=== PATIENT | female | born 1940 | race Caucasian/White ===

== ENCOUNTER → 2017-09-04 | Outpatient (CLI) | payer MEDICARE ==
[2017-09-04 13:24] LABS: HCT 38.9 % (34.0-46.0); HGB 12.8 gm/dL (11.4-16.0); MCH 30.8 pg (25.0-35.0); MCHC 32.8 g/dL (31.0-37.0); MCV 93.8 fL (80.0-100.0); Platelet Count 317 k/uL (150-450); RBC 4.14 m/uL (3.80-5.40); RDW 12.9 % (11.5-15.5); WBC 7.4 k/uL (3.8-10.6)
[2017-09-04 13:28] LABS: Partial Thromboplastin Time 22.8 sec (22.0-30.0); Prothrombin Time 10.1 sec (9.0-12.0)
[2017-09-04 13:33] LABS: ALT 34 U/L (9-52); AST 29 U/L (14-36); Albumin 4.3 g/dL (3.5-5.0); Alkaline Phosphatase 84 U/L (38-126); Anion Gap 12 mmol/L; Blood Urea Nitrogen 20 mg/dL (7-17); Calcium 9.7 mg/dL (8.4-10.2); Carbon Dioxide 26 mmol/L (22-30); Chloride 102 mmol/L (98-107); Glucose 89 mg/dL (74-99); Potassium 4.8 mmol/L (3.5-5.1); Sodium 140 mmol/L (137-145); Total Bilirubin 0.3 mg/dL (0.2-1.3); Total Protein 6.7 g/dL (6.3-8.2)
[2017-09-04 13:53] LABS: Appearance,Urine Clear (Clear); Bilirubin,Urine Negative (Negative); Blood,Urine Small (Negative); Color,Urine Yellow; Glucose,Urine (UA) Negative (Negative); Ketones,Urine Negative (Negative); Leukocyte Esterase,Urine Negative (Negative); Mucus,Urine Rare /hpf; Protein,Urine Negative (Negative); RBC,Urine 5 /hpf (0-5); Specific Gravity,Urine 1.013 (1.001-1.035); Urobilinogen,Urine <2.0 mg/dL (<2.0); WBC,Urine 1 /hpf (0-5)
== END | disposition home or self-care (01) ==
LOC: LABPAT 12:43
PROVIDERS: ATTEND Orthopaedic Surgery
DX: Z01.812 Encounter for preprocedural laboratory examination (principal)
CPT/HCPCS: 36415; 80053; 81001; 85027; 85610; 85730; 87070

== ENCOUNTER 2017-09-21 08:10 | Inpatient (IN) | payer MEDICARE ==
[2017-09-14 09:15] VITALS: BMI 29.0
[~2017-09-21 08:10] MED LIST: ACETAMINOPHEN TAB 500 MG TAB PO ONE; MELOXICAM 7.5 MG TAB PO ONE; MIDAZOLAM 2 MG/2 ML VIAL IV PRN; ONDANSETRON 4 MG/2 ML VIAL IVP ONE; TRANEXAMIC ACID 1,000 MG in SODIUM CHLORIDE 0.9% 50 ML IVPB ONE; ceFAZolin IN SWFI 2 GM/20 ML SYRINGE IVP ONE; fentaNYL (PF) 50 MCG/ML 2 ML AMP IV PRN
[2017-09-21] MEDS: LACTATED RINGERS 1,000 ML IV SCH ×2 (08:54→17:37)
[2017-09-21] MEDS ORDERED: LIDOCAINE 1% 20 ML VIAL (10MG/ML) FOR IV START INTRADERMA ONE (08:55)
[2017-09-21] MEDS: ONDANSETRON 4 MG/2 ML VIAL IVP ONE ×2 (09:02→14:05)
[2017-09-21] MEDS: DEXAMETHASONE SOD PHOSPHATE 10 MG/ML 1 ML VIAL IV ONE ×2 (09:05→14:05)
[2017-09-21] MEDS: ACETAMINOPHEN TAB 500 MG TAB PO STA ×2 (09:24→14:05)
[2017-09-21] MEDS ORDERED: ROPIVACAINE 246.25 MG, EPINEPHrine 0.5 MG, KETOROLAC 30 MG, cloNIDine HCL/PF 80 MCG, WA... MISCELLANE ONE ×5 (09:28)
[2017-09-21] MEDS ORDERED: SODIUM CHLORIDE 0.9% 50 ML with ceFAZolin 2,000 MG IV ONE ×2 (10:12)
[2017-09-21] MEDS ORDERED: fentaNYL (PF) 50 MCG/ML 2 ML AMP ONE (10:12)
[2017-09-21] MEDS ORDERED: TRANEXAMIC ACID 1,000 MG/10 ML VIAL ONE (10:12)
[2017-09-21] MEDS ORDERED: diphenhydrAMINE 50 MG/ML 1 ML VIAL ONE (10:12)
[2017-09-21] MEDS ORDERED: SODIUM CHLORIDE 0.9% 100 ML BAG ONE (10:12)
[2017-09-21] MEDS ORDERED: MIDAZOLAM 2 MG/2 ML VIAL ONE (10:12)
[2017-09-21] MEDS ORDERED: ceFAZolin 3,000 MG in SODIUM CHLORIDE 0.9% IRRIGATIO 3,000 ML IRRIGATION ONE (10:48)
[2017-09-21] MEDS ORDERED: HYDROcodone/APAP 5-325MG 1 EACH TAB PO PRN (12:28)
[2017-09-21] MEDS ORDERED: ACETAMINOPHEN TAB 325 MG TAB PO PRN (12:28)
[2017-09-21] MEDS ORDERED: BISACODYL 10 MG SUPP RECTAL PRN (12:28)
[2017-09-21] MEDS ORDERED: MAGNESIUM HYDROXIDE 2,400 MG/10 ML CUP PO PRN (12:28)
[2017-09-21] MEDS ORDERED: NALOXONE 0.4 MG/ML 1 ML VIAL IV PRN (12:28)
[2017-09-21] MEDS ORDERED: MORPHINE SULFATE 4 MG/ML SYRINGE IVP PRN ×4 (12:28)
[2017-09-21] MEDS ORDERED: TEMAZEPAM 15 MG CAP PO PRN (12:28)
[2017-09-21] MEDS ORDERED: ONDANSETRON 4 MG/2 ML VIAL IVP PRN (12:28)
[2017-09-21] MEDS ORDERED: NA PHOS,M-B/NA PHOS,DI-BA 133 ML ENEMA RECTAL PRN (12:28)
--- NOTE | 2017-09-21 12:54 | XR ---
EXAMINATION TYPE: XR knee limited LT DATE OF EXAM: 09/21/2017 CLINICAL HISTORY: Left knee pain and arthritis status post total knee replacement. TECHNIQUE: Portable AP and crosstable lateral views of the left knee are obtained immediately postop eratively. COMPARISON: None FINDINGS: Metallic hardware from total left knee arthroplasty is seen and appears satisfactory in al ignment and position. There is evidence of recent surgery with diffuse subcutaneous gas, vertical sk in bj, and soft tissue swelling noted. IMPRESSION: METALLIC HARDWARE FROM TOTAL LEFT KNEE ARTHROPLASTY IS SATISFACTORY IN ALIGNMENT.
--- NOTE | 2017-09-21 13:27 | P.OP ---
Date of Procedure: 09/21/17 Procedure(s) Performed: PREOPERATIVE DIAGNOSIS: Left knee severe osteoarthritis with genu varum POSTOPERATIVE DIAGNOSIS: Left knee severe osteoarthritis with genu varum OPERATION: Left knee cemented total replacement arthroplasty. ANESTHESIA: Spinal ESTIMATED BLOOD LOSS: 100 ml. IRISH MOSS GATHERER: Mirtha Landis PA-C (assistance with: patient positioning, retraction, exposure, hemostasis, leg positioning, implantation, irrigation, closure, dressing) COMPLICATIONS: None apparent. COMPONENTS IMPLANTED: Persona system from Michelle INDICATIONS: Mrs. Benedict is a 77-year-old female with a history of knee osteoarthritis. She has already had a right knee replacement arthroplasty many years ago. The operation of knee replacement has been discussed at length in the office, as well as potential risks and complications. These are inclusive of, but not limited to: bleeding, infection, scarring, discomfort, blood vessel and nerve damage, need for further surgery, failure to relieve symptoms, persistence, recurrence, or worsening of problems, loosening, dislocation, wear , blood clot, pulmonary embolism, , gait dysfunction, stiffness, and other risks as discussed in the office. The patient elects to proceed and the consent form has been signed. PROCEDURE: The patient was taken to the operating room and positioned on the operating room table in the supine position. Anesthesia was initiated. Care was taken to make sure that all pressure points were adequately padded. The operative lower extremity was prepped and draped in the usual aseptic fashion using DuraPrep. Ioban drape was used for the case and the patient received intravenous antibiotics within one hour of the incision. A pneumotourniquet and leg grider were used for the case. The limb was exsanguinated with an Esmarch bandage and the tourniquet was inflated to 350 mmHg. Time-out was called confirming the patient's identity, side, procedure and administration of antibiotics. The incision was then created midline directly over the knee, carried down through skin and into the subcutaneous tissues and down to fascia. Full thickness subcutaneous medial flap was developed. Medial parapatellar arthrotomy was performed and the interior of the knee was inspected. There was end-stage osteoarthritis of the knee with a mild to moderate genu varum type deformity. The fat pad was excised and proximal medial release on the tibia was completed using meticulous dissection and a curved osteotome. The anterior cruciate ligament was taken down. Note was made of significant attrition of the anterior and significant degenerative appearance of the posterior cruciate ligaments. The exposure was excellent. The knee was flexed 90 degrees and the patella was everted. A spot was chosen on the femur approximately 1 cm anterior to the posterior cruciate ligament insertion and an intramedullary hole was created within the femur. The intramedullary guide was then set to 5 degrees of valgus. The distal cutting block was attached and pinned into position. An appropriate amount of distal femoral resection was set. The oscillating saw was then used to make the distal femoral cut. This cut was confirmed to be flat with the flat end of an osteotome. The retractors were placed around the tibia and the tibial surface was addressed. The angle and depth of resection was adjusted using an extramedullary cutting guide. The guide had a built-in 3 degree posterior slope cut. Once the cutting guide was adjusted appropriately and in line with the axis of the tibia and confirmed to be in good position in relation to the second metatarsal and transmalleolar axis, the tibial cut was then created with protection of the posterior neurovascular structures and the collateral ligaments. The tibial cut surface was removed and sized. Femoral sizing was then accomplished using anterior referencing. Care was taken to analyze the posterior condyles for signs of deficiency or severe wear, and adjustments to the guide were made, as appropriate. 3 degree external rotation pins were placed. The cutting jig for the femur was applied to these pins. The planned cuts were further analyzed prior to performing them with the oscillating saw. No femoral notching was produced. Bone fragments were removed and the cut surfaces were finished, as necessary, with a reciprocating saw. Spacer block technique was then used to confirm that the flexion and extension gaps were equal. Soft tissue releases and adjustment of the tibial and/or femoral cuts were made, as necessary, until the gaps were equal. This included release of the posterior cruciate ligament, which was tight in this patient and , if left unreleased, would have resulted in poor kinematics and possibly early loosening. The femur was then further finished for a posterior cruciate ligament substituting component. Patellar resurfacing was performed using a reamer. The size of the required patellar component was estimated and the patellar surface was then reamed down to a residual thickness which would recreate the little traverse thickness with the component. The placement of the patellar component was influenced by the degree of patellar subluxation, if any, noted on the preoperative x-rays. Prior to placing trial components, anesthetic solution consisting of ropivicaine with epinephrine, ketorolac, and clonidine was injected carefully and methodically in a grid pattern using aspiration technique into the soft tissue around the knee circumferentially, starting with the deeper tissues first and progressing to fascia, and then finally the skin/subcutaneous tissue. Particular care was taken when injecting the posterior capsule. The trial components were inserted. The tibial tray was allowed to self center and the patella was noted to track very well. The position of the tibial component was marked and the tibia was then finished for a stemmed tibial component. Cement was mixed on the back table and applied to the final components. Trial components were removed and the cut surfaces of the bone were pulse lavaged thoroughly and dried. Cement was then applied to the tibial surface and pressurized into the surface using finger pressurization technique. The tibial component was then applied and excess cement was removed after it was impacted securely and noted to be flush with the cut surface. In similar fashion, the cement was applied to the cut femoral surface, pressurized in using finger pressurization and the component was impacted into place. Excess cement was removed. The polyethylene spacer was then implanted and locked into position. The patellar component was then applied in similar technique and a patellar clamp was used to hold the patella in place as the cement hardened. Once the cement had fully hardened, the knee was reinspected. Any other cement extrusion was removed and final kinematic testing showed range of motion from 0 to 130 degrees with excellent stability, both medially and laterally and appropriate alignment of the leg. Patellar tracking was excellent. The knee was then thoroughly pulse lavaged with normal saline. The tourniquet was deflated and hemostasis was obtained with electrocautery and IV tranexamic acid, 1 g given prior to inflation of the tourniquet and another gram given at the time of closure. Closure was with #2 Ethibond in the fascia and supplemented with #2 Quill, 2-0 Vicryl suture was used for the subcutaneous tissues and 3-0 Quill for the skin. Dermabond/Steri-Strips were then applied. A lightly compressive dressing was applied using Webril and an Fred wrap. The patient was then transferred to stretcher and taken to the recovery room in stable condition. Sponge and needle counts were correct.
[2017-09-21] MEDS ORDERED: BACLOFEN 10 MG TAB PO PRN (14:18)
[2017-09-21] MEDS: HYDROcodone/APAP 5-325MG 1 EACH TAB PO PRN ×2 (15:14→20:25)
[2017-09-21 15:29] LABS: Glucose,Whole Blood 129 mg/dL (75-99)
--- NOTE | 2017-09-21 15:33 | P.CONS ---
History of Present Illness - Reason for Consult Supra Ventricular tachycardia - History of Present Illness Patient is under a pleasant female admitted for elective left knee arthroplasty. Postoperatively patient is clinically doing well underwent surgery today morning. Patient denied any fever chills nausea vomiting abdominal pain. Patient is a heart rate is well-controlled patient did take her Cardizem today. Patient denied any lightheadedness. Review of Systems REVIEW OF SYSTEMS: CONSTITUTIONAL: No fever, no malaise, no fatigue. HEENT: No recent visual problems or hearing problems. Denied any sore throat. CARDIOVASCULAR: No chest pain, orthopnea, PND, no palpitations, no syncope. PULMONARY: No shortness of breath, no cough, no hemoptysis. GASTROINTESTINAL: No diarrhea, no nausea, no vomiting, no abdominal pain. Normoactive bowel sounds. NEUROLOGICAL: No headaches, no weakness, no numbness. HEMATOLOGICAL: Denies any bleeding or petechiae. GENITOURINARY: Denies any burning micturition, frequency, or urgency. MUSCULOSKELETAL/RHEUMATOLOGICAL: Denies any joint pain, swelling, or any muscle pain. ENDOCRINE: Denies any polyuria or polydipsia. The rest of the 14-point review of systems is negative. Past Medical History Past Medical History: Asthma, COPD, Fibromyalgia, Hyperlipidemia, Hypertension, Osteoarthritis (OA), Pneumonia, Supraventricular Tachycardia (SVT), Thyroid Disorder Additional Past Medical History / Comment(s): RBBB, varicose veins, anemia, frequent night time urination, dx with aspergillus rt lung in 2017 History of Any Multi-Drug Resistant Organisms: None Reported Past Surgical History: Cardiac Ablation, Hysterectomy, Joint Replacement, Tonsillectomy Additional Past Surgical History / Comment(s): cardiac ablation x 2, jaime hip replacement, rt knee replacement, rt knee arthroscopy, jaime cataracts, bronchoscopy Past Anesthesia/Blood Transfusion Reactions: No Reported Reaction Past Psychological History: No Psychological Hx Reported Smoking Status: Former smoker Past Alcohol Use History: None Reported Additional Past Alcohol Use History / Comment(s): quit smoking 1989, smoked for 30 yrs, 2 PPD Past Drug Use History: None Reported - Past Family History Daughter(s) Family Medical History: Cancer Mother Family Medical History: Pneumonia Medications and Allergies Home Medications Medication Instructions Recorded Confirmed Type Acetaminophen/Diphenhydramine 2 tab PO TID 09/14/17 09/21/17 History [Tylenol PM Extra Strength] Ascorbic Acid [Vitamin C] 500 mg PO DAILY 09/14/17 09/21/17 History Atorvastatin [Lipitor] 10 mg PO HS 09/14/17 09/21/17 History Baclofen 10 mg PO TID PRN 09/14/17 09/21/17 History Cholecalciferol (Vitamin D3) 2,000 unit PO DAILY 09/14/17 09/21/17 History [Vitamin D3] Cyanocobalamin (Vitamin B-12) 1,000 mcg PO DAILY 09/14/17 09/21/17 History [Vitamin B-12] DULoxetine HCL [Cymbalta] 60 mg PO DAILY 09/14/17 09/21/17 History Diltiazem HCl [Diltiazem ER] 120 mg PO QAM 09/14/17 09/21/17 History Ferrous Sulfate [Feosol] 325 mg PO DAILY 09/14/17 09/21/17 History Fluticasone Propionate [Flovent 250 mcg INHALATION RT-BID 09/14/17 09/21/17 History Diskus] Ginkgo Biloba [place] Extract [Ginkgo] 120 mg PO BID 09/14/17 09/21/17 History Levothyroxine Sodium [Synthroid] 125 mcg PO DAILY 09/14/17 09/21/17 History Meloxicam 7.5 mg PO BID 09/14/17 09/21/17 History Montelukast [Singulair] 10 mg PO HS 09/14/17 09/21/17 History Turmeric Root Extract [Turmeric] 1,000 mg PO BID 09/14/17 09/21/17 History Ubidecarenone [Co Q-10] 300 mg PO DAILY 09/14/17 09/21/17 History Vitamin B Complex 1 cap PO DAILY 09/14/17 09/21/17 History traMADol HCL [Ultram] 100 mg PO TID 09/14/17 09/21/17 History Acetaminophen Tab [Tylenol] 1,000 mg PO Q6H PRN 09/21/17 09/21/17 History HYDROcodone/APAP 5-325MG [[place] 1 - 2 each PO Q4-6H PRN #90 tab 09/21/17 Rx 5-325] Sennosides-Docusate Sodium 1 tab PO BID #60 tablet 09/21/17 Rx [Senokot-S] Warfarin [Coumadin] 2.5 mg PO DAILY #1 tab 09/21/17 Rx Allergies Allergy/AdvReac Type Severity Reaction Status Date / Time latex Allergy Rash/Hives Verified 09/21/17 13:02 morphine Allergy Rapid Verified 09/21/17 13:02 Heart Rate naproxen [From Naprosyn] Allergy tongue Verified 09/21/17 13:02 swelling Sulfa (Sulfonamide Allergy tongue Verified 09/21/17 13:02 Antibiotics) swelling Physical Exam Vitals: Vital Signs Temp Pulse Resp BP Pulse Ox 09/21/17 13:30 94 16 163/62 93 L 09/21/17 13:17 91 16 145/68 94 L 09/21/17 13:00 91 16 146/67 93 L 09/21/17 12:45 90 16 158/74 100 09/21/17 12:28 98.5 F 92 16 157/86 100 09/21/17 08:46 98.1 F 86 18 142/65 94 L Intake and Output 09/21/17 09/21/17 09/21/17 06:59 14:59 22:59 Intake Total 1101 Output Total 50 Balance 1051 Intake: IV 1101 Output: Estimated Blood Loss 50 Other: Weight 80.286 kg PHYSICAL EXAMINATION: GENERAL: The patient is alert and oriented x3, not in any acute distress. Well developed, well nourished. HEENT: Pupils are round and equally reacting to light. EOMI. No scleral icterus. No conjunctival pallor. Normocephalic, atraumatic. No pharyngeal erythema. No thyromegaly. CARDIOVASCULAR: S1 and S2 present. No murmurs, rubs, or gallops. PULMONARY: Chest is clear to auscultation, no wheezing or crackles. ABDOMEN: Soft, nontender, nondistended, normoactive bowel sounds. No palpable organomegaly. MUSCULOSKELETAL: Deferred to orthopedic surgery EXTREMITIES: No cyanosis, clubbing, or pedal edema. NEUROLOGICAL: Gross neurological examination did not reveal any focal deficits. SKIN: No rashes. Results Labs: Abnormal Lab Results - Last 24 Hours (Table) 09/21/17 Range/Units 15:26 POC Glucose (mg/dL) 129 H (75-99) mg/dL Assessment and Plan Plan: -Postoperative day 0, elective left knee arthroplasty. Pain management DVT prophylaxis per primary service patient is receiving 5 mg of Coumadin today. -Super ventricular tachycardia: Patient is on Cardizem which will be continued and patient's heart rate is well controlled at this time. -COPD without any acute exacerbation -Fibromyalgia -Hyperlipidemia -Hypertension -Hypothyroidism For above-mentioned chronic medical problems patient will be resumed and continued on appropriate home medications all her medications were reviewed and reconciled
[2017-09-21] MEDS: ceFAZolin IN SWFI 2 GM/20 ML SYRINGE IVP SCH (17:36)
[2017-09-21] MEDS ORDERED: WARFARIN 5 MG TAB PO ONE (18:00)
[2017-09-21] MEDS: hydrOXYzine PAMOATE 25 MG CAP PO PRN (20:25)
[2017-09-21] MEDS ORDERED: ATORVASTATIN 10 MG TAB PO SCH (21:00)
[2017-09-21] MEDS ORDERED: SENNOSIDES-DOCUSATE SODIUM 1 EACH TAB PO SCH (21:00)
[2017-09-21] MEDS ORDERED: MONTELUKAST 10 MG TAB PO SCH (21:00)
[2017-09-21] MEDS: BUDESONIDE 1 MG/2 ML NEBU INHALATION SCH (21:30)
[2017-09-22] MEDS: ceFAZolin IN SWFI 2 GM/20 ML SYRINGE IVP SCH (00:11)
[2017-09-22] MEDS: LACTATED RINGERS 1,000 ML IV SCH ×3 (00:28→09:00)
[2017-09-22] MEDS: hydrOXYzine PAMOATE 25 MG CAP PO PRN ×2 (05:13→10:57)
[2017-09-22] MEDS: HYDROcodone/APAP 5-325MG 1 EACH TAB PO PRN ×2 (05:13→10:58)
[2017-09-22] MEDS ORDERED: LEVOTHYROXINE 125 MCG TAB PO SCH (06:30)
[2017-09-22 06:54] VITALS: BP 118/68; PULSE 93; RESP 14; TEMP 98.2
[2017-09-22 07:07] LABS: Basophils % (A) 0 %; Eosinophils % (A) 0 %; HCT 33.1 % (34.0-46.0); HGB 11.2 gm/dL (11.4-16.0); Lymphocytes % (A) 7 %; MCH 31.1 pg (25.0-35.0); MCHC 33.9 g/dL (31.0-37.0); MCV 91.8 fL (80.0-100.0); Mean Platelet Volume 6.6; Monocytes # (A) 0.7 k/uL (0-1.0); Monocytes % (A) 5 %; Neutrophils # (A) 11.5 k/uL (1.3-7.7); Neutrophils % (A) 87 %; Platelet Count 243 k/uL (150-450); RBC 3.61 m/uL (3.80-5.40); RDW 12.5 % (11.5-15.5); WBC 13.3 k/uL (3.8-10.6)
[2017-09-22 07:11] LABS: INR 1.2 (<1.2); Prothrombin Time 11.4 sec (9.0-12.0)
--- NOTE | 2017-09-22 08:54 | P.DS ---
Providers Date of admission: 09/21/17 08:10 Expected date of discharge: 09/22/17 Attending physician: Khris Epstein Consults: 09/21/17 12:28 Consult Physician Routine Consulting Provider: Camille Motley Consult Reason/Comments: Medical management Do you want consulting provider notified?: Yes Primary care physician: Isamar Rodriguez - Discharge Diagnosis(es) (1) Localized osteoarthritis of left knee Current Visit: Yes Status: Acute (2) Status post left knee replacement Current Visit: Yes Status: Acute Hospital Course: This is a pleasant 77-year-old female last seen in our office with complaints of left knee pain. Patient has known history of degenerative arthritis of the left knee and presented to discuss options. After discussion and consideration , the patient elected to proceed with a left total knee arthroplasty. Patient was seen preoperatively, and medically cleared for surgery by her primary care physician. Patient was admitted to [facility] underwent left total knee arthroplasty on 09/22/[address] Epstein. The procedure was performed without complications or sequelae. The patient is seen and evaluated at bedside today. Pain is well-controlled. Patient has no new complaints today and denies any fevers, chills, nausea, vomiting, or shortness of breath. Vital signs are stable. Dressing is clean dry and intact. Incision looks fine with no erythema or active drainage. Calf is soft and nontender. Patient has full foot and ankle motion without difficulty. Patient's left lower extremity is neurovascularly intact. The patient is orthopedically stable for discharge today. Pertinent Studies: Laboratory Tests 09/22/17 09/22/17 06:30 06:30 WBC 13.3 H RBC 3.61 L Hgb 11.2 L Hct 33.1 L Neutrophils # 11.5 H PT 11.4 INR 1.2 H Patient Condition at Discharge: Stable Plan - Discharge Summary Discharge Rx Participant: No New Discharge Prescriptions: New HYDROcodone/APAP 5-325MG [[place] 5-325] 1 - 2 each PO Q4-6H PRN #90 tab PRN Reason: Pain Sennosides-Docusate Sodium [Senokot-S] 1 tab PO BID #60 tablet Warfarin [Coumadin] 2.5 mg PO DAILY #1 tab No Action Ubidecarenone [Co Q-10] 300 mg PO DAILY Turmeric Root Extract [Turmeric] 1,000 mg PO BID Ginkgo Biloba [place] Extract [Ginkgo] 120 mg PO BID Ascorbic Acid [Vitamin C] 500 mg PO DAILY Vitamin B Complex 1 cap PO DAILY Acetaminophen/Diphenhydramine [Tylenol PM Extra Strength] 2 tab PO TID Cholecalciferol (Vitamin D3) [Vitamin D3] 2,000 unit PO DAILY Meloxicam 7.5 mg PO BID Levothyroxine Sodium [Synthroid] 125 mcg PO DAILY Cyanocobalamin (Vitamin B-12) [Vitamin B-12] 1,000 mcg PO DAILY traMADol HCL [Ultram] 100 mg PO TID Montelukast [Singulair] 10 mg PO HS Diltiazem HCl [Diltiazem ER] 120 mg PO QAM Atorvastatin [Lipitor] 10 mg PO HS DULoxetine HCL [Cymbalta] 60 mg PO DAILY Baclofen 10 mg PO TID PRN PRN Reason: Pain Fluticasone Propionate [Flovent Diskus] 250 mcg INHALATION RT-BID Ferrous Sulfate [Feosol] 325 mg PO DAILY Acetaminophen Tab [Tylenol] 1,000 mg PO Q6H PRN PRN Reason: Pain Discharge Medication List Acetaminophen/Diphenhydramine [Tylenol PM Extra Strength] 2 tab PO TID 09/14/17 [History] Ascorbic Acid [Vitamin C] 500 mg PO DAILY 09/14/17 [History] Atorvastatin [Lipitor] 10 mg PO HS 09/14/17 [History] Baclofen 10 mg PO TID PRN 09/14/17 [History] Cholecalciferol (Vitamin D3) [Vitamin D3] 2,000 unit PO DAILY 09/14/17 [History] Cyanocobalamin (Vitamin B-12) [Vitamin B-12] 1,000 mcg PO DAILY 09/14/17 [ History] DULoxetine HCL [Cymbalta] 60 mg PO DAILY 09/14/17 [History] Diltiazem HCl [Diltiazem ER] 120 mg PO QAM 09/14/17 [History] Ferrous Sulfate [Feosol] 325 mg PO DAILY 09/14/17 [History] Fluticasone Propionate [Flovent Diskus] 250 mcg INHALATION RT-BID 09/14/17 [ History] Ginkgo Biloba [place] Extract [Ginkgo] 120 mg PO BID 09/14/17 [History] Levothyroxine Sodium [Synthroid] 125 mcg PO DAILY 09/14/17 [History] Meloxicam 7.5 mg PO BID 09/14/17 [History] Montelukast [Singulair] 10 mg PO HS 09/14/17 [History] Turmeric Root Extract [Turmeric] 1,000 mg PO BID 09/14/17 [History] Ubidecarenone [Co Q-10] 300 mg PO DAILY 09/14/17 [History] Vitamin B Complex 1 cap PO DAILY 09/14/17 [History] traMADol HCL [Ultram] 100 mg PO TID 09/14/17 [History] Acetaminophen Tab [Tylenol] 1,000 mg PO Q6H PRN 09/21/17 [History] HYDROcodone/APAP 5-325MG [[place] 5-325] 1 - 2 each PO Q4-6H PRN #90 tab 09/21/17 [Rx] Sennosides-Docusate Sodium [Senokot-S] 1 tab PO BID #60 tablet 09/21/17 [Rx] Warfarin [Coumadin] 2.5 mg PO DAILY #1 tab 09/21/17 [Rx] Follow up Appointment(s)/Referral(s): Mirtha Landis, PAC [PHYSICIAN ELECTROGALVANIZING MACHINE OPERATOR] - 2 Weeks Ambulatory/Diagnostic Orders: Continuous Passive Motion (CPM) Machine [DME.AMB1] Time Frame: 3 Weeks, Facility : [facility] Location: Case Management Prothrombin Time INR [LAB.AMB] Location: Determined By Patient Activity/Diet/Wound Care/Special Instructions: May bear wt as tolerated w walker. CPM 5-6h daily. Discharge Disposition: HOME WITH HOME HEALTH SERVICES
[2017-09-22] MEDS ORDERED: NON-FORMULARY DRUG (Ubidecarenone [Co Q-10] 300 MG) PO SCH (09:00)
[2017-09-22] MEDS ORDERED: MELOXICAM 7.5 MG TAB PO SCH (09:00)
[2017-09-22] MEDS ORDERED: DULoxetine HCL 60 MG CAPSULE.DR PO SCH (09:00)
[2017-09-22] MEDS ORDERED: DILTIAZEM CD 120 MG CAP.ER.24H PO SCH (09:00)
[2017-09-22] MEDS: BUDESONIDE 1 MG/2 ML NEBU INHALATION SCH (10:00)
[2017-09-22] MEDS ORDERED: HYDROmorphone 2 MG TAB PO PRN ×3 (11:30→11:34)
[2017-09-22] MEDS ORDERED: HYDROmorphone 4 MG TABLET PO PRN (11:33)
[2017-09-22] MEDS ORDERED: CHOLECALCIFEROL 1,000 UNIT TAB PO SCH (12:00)
[2017-09-22] MEDS ORDERED: B COMPLEX-VIT C-VIT E-ZINC 1 EACH TAB PO SCH (12:00)
[2017-09-22] MEDS ORDERED: FERROUS SULFATE 325 MG TAB PO SCH (12:00)
[2017-09-22] MEDS ORDERED: CYANOCOBALAMIN 500 MCG TAB PO SCH (12:00)
[2017-09-22] MEDS ORDERED: MULTIVITAMINS, THERA 1 EACH TAB PO SCH (12:33)
--- NOTE | 2017-09-22 14:57 | P.PN ---
Subjective Patient is clinically doing well overnight events, discharge medication reconsideration was reviewed patient is okay to be discharged from medicine perspective. Patient has leukocytosis reactive response from surgery no signs or symptoms of sepsis Objective - Vital Signs Vital signs: Vital Signs Temp 98.2 F 09/22/17 06:53 Pulse 93 09/22/17 06:53 Resp 14 09/22/17 06:56 BP 118/68 09/22/17 06:53 Pulse Ox 97 09/22/17 06:53 Intake & Output 09/21/17 09/22/17 09/22/17 18:59 06:59 18:59 Intake Total 1101 1600 300 Output Total 50 Balance 1051 1600 300 Weight 80.286 kg Intake: IV 1101 Intake, IV Titration 1600 Amount Lactated Ringers 1,000 ml 1600 @ 100 mls/hr IV .Q10H AMBROCIO Rx#:[id number] Oral 300 Output: Estimated Blood Loss 50 Other: Voiding Method Indwelling Catheter # Voids 1 3 - Exam PHYSICAL EXAMINATION: GENERAL: The patient is alert and oriented x3, not in any acute distress. Well developed, well nourished. HEENT: Pupils are round and equally reacting to light. EOMI. No scleral icterus. No conjunctival pallor. Normocephalic, atraumatic. No pharyngeal erythema. No thyromegaly. CARDIOVASCULAR: S1 and S2 present. No murmurs, rubs, or gallops. PULMONARY: Chest is clear to auscultation, no wheezing or crackles. ABDOMEN: Soft, nontender, nondistended, normoactive bowel sounds. No palpable organomegaly. MUSCULOSKELETAL: Deferred to orthopedic surgery EXTREMITIES: No cyanosis, clubbing, or pedal edema. NEUROLOGICAL: Gross neurological examination did not reveal any focal deficits. SKIN: No rashes. - Labs CBC & Chem 7: 09/22/17 06:30 Labs: Abnormal Lab Results - Last 24 Hours (Table) 09/21/17 09/22/17 09/22/17 Range/Units 15:26 06:30 06:30 WBC 13.3 H (3.8-10.6) k/uL RBC 3.61 L (3.80-5.40) m/uL Hgb 11.2 L (11.4-16.0) gm/dL Hct 33.1 L (34.0-46.0) % Neutrophils # 11.5 H (1.3-7.7) k/uL INR 1.2 H (<1.2) POC Glucose (mg/dL) 129 H (75-99) mg/dL Assessment and Plan Plan: -Postoperative day 0, elective left knee arthroplasty. Pain management DVT prophylaxis per primary service patient. -Super ventricular tachycardia: Patient is on Cardizem which will be continued and patient's heart rate is well controlled at this time. -COPD without any acute exacerbation -Fibromyalgia -Hyperlipidemia -Hypertension -Hypothyroidism -Leukocytosis: Reactive secondary to surgery without any signs or symptoms of infection For above-mentioned chronic medical problems patient will be resumed and continued on appropriate home medications all her medications were reviewed and reconciled
[2017-09-22] MEDS ORDERED: WARFARIN 5 MG TAB PO ONE (18:00)
== END 2017-09-22 14:45 | disposition home health service (06) | DRG 470 ==
LOC: 2ORMAIN 08:10 → 3SUR 12:28
PROVIDERS: ADMIT Orthopaedic Surgery; ATTEND Orthopaedic Surgery
PROC: 0SRC0J9 Replacement of Right Knee Joint with Synthetic Substitute, Cemented, Open Approach (ICD-10-PCS; principal; 2017-09-21 10:00)
DX: M17.12 Unilateral primary osteoarthritis, left knee (principal); I47.2 Ventricular tachycardia; J44.9 Chronic obstructive pulmonary disease, unspecified; E78.5 Hyperlipidemia, unspecified; M21.162 Varus deformity, not elsewhere classified, left knee; Z96.651 Presence of right artificial knee joint; I10 Essential (primary) hypertension; E03.9 Hypothyroidism, unspecified; M79.7 Fibromyalgia; Z96.643 Presence of artificial hip joint, bilateral; Z90.710 Acquired absence of both cervix and uterus; Z87.891 Personal history of nicotine dependence; Z79.899 Other long term (current) drug therapy; Z88.5 Allergy status to narcotic agent; Z88.2 Allergy status to sulfonamides; Z91.040 Latex allergy status
CPT/HCPCS: 85025; 85610; 88300; 94640

== ENCOUNTER 2020-09-13 17:15 | Emergency (ER) | payer MEDICARE ==
--- NOTE | 2020-09-13 19:24 | XR ---
EXAMINATION TYPE: XR chest 2V DATE OF EXAM: 09/13/2020 COMPARISON: NONE HISTORY: Cough and shortness of breath. Covid positive today. TECHNIQUE: Frontal and lateral views of the chest are obtained. FINDINGS: There is chronic parenchymal changes bilaterally without suspicious focal air space opacit y, pleural effusion, or pneumothorax seen. The cardiac silhouette size is within normal limits with atherosclerotic change aortic knob. The osseous structures are demineralized. Surgical change left shoulder level partially imaged. IMPRESSION: Chronic changes without acute pulmonary process.
--- NOTE | 2020-09-13 19:29 | ED ---
General Adult HPI <Mario Drummond - Last Filed: 09/13/20 20:14> - General Source: patient Mode of arrival: ambulatory Limitations: no limitations <Al Julian - Last Filed: 09/13/20 23:58> - General Chief complaint: Upper Respiratory Infection Stated complaint: Covid +, Cough Time Seen by Provider: 09/13/20 17:54 - History of Present Illness Initial comments: 80-year-old female presents to emergency Department with a chief complaint of a cough. Patient reports she's had this for about 2 days and was diagnosed this morning with Covid. Station did not want to come for evaluation but her daughter advised her to. Patient states she is not a current smoker but has history of COPD and asthma. She denies any chest pain or shortness of breath at this time. Patient denies any fevers or chills at home. Patient states she is otherwise feeling well except for the cough. She denies taking medication to alleviate the symptoms. (Al Julian) - Related Data Home Medications Medication Instructions Recorded Confirmed Acetaminophen/Diphenhydramine 2 tab PO TID 09/14/17 09/21/17 [Tylenol PM Extra Strength] Ascorbic Acid [Vitamin C] 500 mg PO DAILY 09/14/17 09/21/17 Atorvastatin [Lipitor] 10 mg PO HS 09/14/17 09/21/17 Baclofen 10 mg PO TID PRN 09/14/17 09/21/17 Cholecalciferol (Vitamin D3) 2,000 unit PO DAILY 09/14/17 09/21/17 [Vitamin D3] Cyanocobalamin (Vitamin B-12) 1,000 mcg PO DAILY 09/14/17 09/21/17 [Vitamin B-12] DULoxetine HCL [Cymbalta] 60 mg PO DAILY 09/14/17 09/21/17 Diltiazem HCl [Diltiazem ER] 120 mg PO QAM 09/14/17 09/21/17 Ferrous Sulfate [Feosol] 325 mg PO DAILY 09/14/17 09/21/17 Fluticasone Propionate [Flovent 250 mcg INHALATION RT-BID 09/14/17 09/21/17 Diskus] Ginkgo Biloba [place] Extract [Ginkgo] 120 mg PO BID 09/14/17 09/21/17 Levothyroxine Sodium [Synthroid] 125 mcg PO DAILY 09/14/17 09/21/17 Meloxicam 7.5 mg PO BID 09/14/17 09/21/17 Montelukast [Singulair] 10 mg PO HS 09/14/17 09/21/17 Turmeric Root Extract [Turmeric] 1,000 mg PO BID 09/14/17 09/21/17 Ubidecarenone [Co Q-10] 300 mg PO DAILY 09/14/17 09/21/17 Vitamin B Complex 1 cap PO DAILY 09/14/17 09/21/17 traMADol HCL [Ultram] 100 mg PO TID 09/14/17 09/21/17 Acetaminophen Tab [Tylenol] 1,000 mg PO Q6H PRN 09/21/17 09/21/17 Previous Rx's Medication Instructions Recorded HYDROcodone/APAP 5-325MG [Berkey 1 - 2 each PO Q4-6H PRN #90 tab 09/21/17 5-325] Sennosides-Docusate Sodium 1 tab PO BID #60 tablet 09/21/17 [Senokot-S] Warfarin [Coumadin] 2.5 mg PO DAILY #1 tab 09/21/17 Azithromycin [Zithromax Z-pack (6 0 mg PO DIRECTED #1 pack 09/13/20 tabs)] Dexamethasone [Decadron] 6 mg PO DAILY #10 tablet 09/13/20 Allergies Allergy/AdvReac Type Severity Reaction Status Date / Time latex Allergy Rash/Hives Verified 09/13/20 17:31 morphine Allergy Rapid Verified 09/13/20 17:31 Heart Rate naproxen [From Naprosyn] Allergy tongue Verified 09/13/20 17:31 swelling Sulfa (Sulfonamide Allergy tongue Verified 09/13/20 17:31 Antibiotics) swelling Review of Systems ROS Other: All systems not noted in ROS Statement are negative. <Mario Drummond - Last Filed: 09/13/20 20:14> ROS Other: All systems not noted in ROS Statement are negative. <lA Julian - Last Filed: 09/13/20 23:58> ROS Statement: Those systems with pertinent positive or pertinent negative responses have been documented in the HPI. Past Medical History Past Medical History: Asthma, COPD, Fibromyalgia, Hyperlipidemia, Hypertension, Osteoarthritis (OA), Pneumonia, Supraventricular Tachycardia (SVT), Thyroid Disorder Additional Past Medical History / Comment(s): RBBB, varicose veins, anemia, frequent night time urination, dx with aspergillus rt lung in 2017 History of Any Multi-Drug Resistant Organisms: None Reported Past Surgical History: Cardiac Ablation, Hysterectomy, Joint Replacement, Tonsillectomy Additional Past Surgical History / Comment(s): cardiac ablation x 2, jaime hip replacement, rt knee replacement, rt knee arthroscopy, jaime cataracts, bronchoscopy, Left shoulder surgery. Past Anesthesia/Blood Transfusion Reactions: No Reported Reaction Past Psychological History: No Psychological Hx Reported Smoking Status: Former smoker Past Alcohol Use History: None Reported Past Drug Use History: None Reported - Past Family History Daughter(s) Family Medical History: Cancer Mother Family Medical History: Pneumonia <Al Julian - Last Filed: 09/13/20 23:58> General Exam Limitations: no limitations General appearance: alert, in no apparent distress Head exam: Present: atraumatic, normocephalic, normal inspection Eye exam: Present: normal appearance, PERRL, EOMI Pupils: Present: normal accommodation ENT exam: Present: normal exam, normal oropharynx, mucous membranes moist Neck exam: Present: normal inspection, full ROM. Absent: tenderness Respiratory exam: Present: normal lung sounds bilaterally. Absent: respiratory distress, wheezes, rales, rhonchi, stridor, chest wall tenderness, accessory muscle use Cardiovascular Exam: Present: regular rate, normal rhythm, normal heart sounds Extremities exam: Present: normal inspection, full ROM, normal capillary refill. Absent: tenderness, pedal edema, joint swelling Back exam: Present: normal inspection, full ROM. Absent: tenderness Neurological exam: Present: alert, oriented X3, normal gait Psychiatric exam: Present: normal affect, normal mood Skin exam: Present: warm, dry, intact, normal color <Al Julian - Last Filed: 09/13/20 23:58> Course <Mario Drummond - Last Filed: 09/13/20 20:14> Vital Signs 09/13/20 09/13/20 09/13/20 17:28 19:31 19:50 Temperature 98.4 F 98.8 F 98.7 F Pulse Rate 91 88 92 Respiratory 18 22 20 Rate Blood Pressure 130/56 129/71 132/65 O2 Sat by Pulse 95 95 95 Oximetry - Reevaluation(s) Reevaluation #1: 09/13/20 20:14 PA supervision: I did proceed evaluate this case patient did present with complaints consistent with a viral infection she was diagnosed withCovid 19 . A pulse ox 95% on room air. Reevaluation she was deemed to be in satisfactory condition for discharge return parameters were given. (Mario Drummond) Medical Decision Making <Al Julian - Last Filed: 09/13/20 23:58> - Medical Decision Making 80-year-old female presents to emergency Department with a chief complaint of a cough. She is Covid positive. On physical examination, patient is not in any respiratory distress. Lungs are clear to auscultation. Chest x-ray showing chronic changes without acute plantar process. EKG showing a sinus rhythm and a right bundle branch block. No old EKG for comparison. Patient was offered laboratory work but she declined. Patient will be started on 6 mg of Decadron and Z-Bubba. Patient advised to return to emergency department if her symptoms worsen. Advised to self isolate for the next 10 days. Case discussed with Dr. Drummond. (Al Julian) Disposition <Mario Drummond - Last Filed: 09/13/20 20:14> Is patient prescribed a controlled substance at d/c from ED?: No Time of Disposition: 19:30 <Al Julian - Last Filed: 09/13/20 23:58> Clinical Impression: COVID-19, Cough Disposition: HOME SELF-CARE Condition: Stable Instructions (If sedation given, give patient instructions): Coronavirus Disease 2019 (COVID-19) Additional Instructions: Take prescribed medication as directed. Return to emergency department if symptoms worsen. Prescriptions: Dexamethasone [Decadron] 6 mg PO DAILY #10 tablet Azithromycin [Zithromax Z-pack (6 tabs)] 0 mg PO DIRECTED #1 pack Referrals: Isamar Rodriguez MD [Primary Care Provider] - 1-2 days
[2020-09-13 20:04] VITALS: BP 132/65; PULSE 92; RESP 20; TEMP 98.7
== END 2020-09-13 19:50 | disposition home or self-care (01) ==
LOC: EC 17:15
DX: U07.1 COVID-19 (principal); E78.5 Hyperlipidemia, unspecified; I10 Essential (primary) hypertension; J44.9 Chronic obstructive pulmonary disease, unspecified; M19.90 Unspecified osteoarthritis, unspecified site; Z79.1 Long term (current) use of non-steroidal anti-inflammatories (NSAID); Z79.51 Long term (current) use of inhaled steroids; Z87.891 Personal history of nicotine dependence; Z79.01 Long term (current) use of anticoagulants
CPT/HCPCS: 71046; 93005; 99283